=== PATIENT | female | born 2005 | race Caucasian/White ===

== ENCOUNTER 2024-12-14 11:09 | Outpatient (AMB) | payer OTHER, SELFPAY ==
--- NOTE | 2024-12-14 11:15 | A.OFFVIS_ITS ---
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 States she had discomfort in her back, pain with prolong laying on her left side. States this is all new to her and thought her discomfort was due to bad pasture. MRI done in [place] while in training. She doesn't have a copy of results. Hx of pelvic fracture in January 2024. Referred by Elena Perez PCP office/ [facility]. Allergies No Known Allergies Allergy (Verified 12/14/24 11:25) Medication List - Last Reconciled 12/14/24 by Areli Berger MD No Known Home Meds HPI Comments Details: Pelvic fracture in January 2024. Had hiccups with recovery. Repeated pelvic fracture, doctor said there was a curvature 22-24 degrees, and then MRI ordered. MRI done April 2024. Told to have scoliosis and hairline fracture on the right. None of these are available for my review. Discomfort on lower back. Does not radiate to legs. Denies numbness. Denies weakness. No bladder/bowel changes. Separate right groin pain from the pelvic fracture. adjusts her pubic symphysis. Unable to re-enlist without resolution for scoliosis and pelvic fracture. 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 Patient was appropriately conversant and oriented. Good historian. MSK: Inspection reveals appropriate head and neck positioning. No pain with palpation over the neck musculature. Cervical ROM was full. Spurling's sign negative. Bilateral shoulder, elbow and wrist ROM WNL. No ligamentous laxity or crepitance. No increased effusion. No specific abnormalities or instability found on inspection and palpation of the spine and extremities. Lumbar ROM was full. No spinal curvature seen. SI joints appeared symmetric. Negative TALIA test bilateral. Negative SLR bilateral. Strength is 5/5 in all muscle groups tested. No increased tone noted. Neurological: Neurologic examination of the upper and lower extremities was nonfocal with intact sensation, muscle stretch reflexes and without focal motor deficits . Mercedes?s negative bilaterally. Babinski was down going bilaterally. Clonus was negative. Gait is non-antalgic without loss of balance. Results Reviewed Results Reviewed: I independently reviewed the results of the following: [ ] I reviewed records from the following: [ ] Assessment & Plan Assessment & Plan (1) History of pelvic fracture: Code(s): Z87.81 - Personal history of (healed) traumatic fracture Category: Medical (2) History of scoliosis: Code(s): Z87.39 - Personal history of other diseases of the musculoskeletal system and connective tissue Category: Medical Plan Recovering from pelvic fracture. Told to have scoliosis. No red flags on exam today. Patient needs some sort of clearance before she can really list. I would need past records, including lumbar and pelvic x-rays and MRIs done in [place]. We will see if I need to repeat any, although no clinical indication at this time to need further imaging. Assessment and plan discussed with patient, and patient was agreeable. All questions were answered thoroughly. Follow up after all past records obtained. Areli Berger MD, SHEREE Board Certified, [place] [employer] Physical [employer] and Rehabilitation (ABPMR) Board Certified, [place] Board of Electrodiagnostic Medicine (ABEM) Coding Level of Care Code New Pt Level 3 (50031) Diagnoses History of pelvic fracture Z87.81 History of scoliosis Z87.39
[2024-12-14 11:27] VITALS: BMI 22.6
--- OUTSIDE RECORDS SUMMARY | 2024-12-14 13:43 | XMS_ITS | Clinical Summary ---
Author Organization [facility] [address] [facility] l[address] Address [address] [place] [address] Phone Care Team Providers Care Engineering Group Manager Name Role Phone Blanca Mccartney MD Primary Care Provider Allergies No known active allergies Medications prednisoLONE acetate (PRED FORTE) 1 % ophthalmic suspension instill 1 drop into both eyes four times daily. 4 Active fluticasone propionate (FLONASE) 50 mcg/actuation nasal spray Administer 2 sprays into affected nostril(s). 4 Active doxycycline (VIBRAMYCIN) 100 mg capsule Take 1 capsule (100 mg total) by mouth 2 (two) times a day. 7 days 4 Active Active Problems Problem Noted Date Diagnosed Date History of pelvic fracture Scoliosis Encounters Date Type Department Care Team Description 10/16/2024 Telephone Obstetrics and Gynecology - [facility] [address] [place] [phone] Elizabeth Xie MA 10/13/2024 Telephone Obstetrics and Gynecology - [facility] [address] [place] [phone] Karoline Mccullough CNM Results 10/06/2024 1:48 PM EST - 10/06/2024 11:59 PM EST Hospital Encounter [facility] Ultrasound [address] [place] [address] Pain due to intrauterine contraceptive device (IUD), initial encounter ([facility] V24) Discharge Disposition: Home or Self Care 09/27/2024 2:45 PM EST Office Visit Obstetrics and Gynecology - [address] [phone] Karoline Mccullough CNM IUD check up (Primary Dx); Pain due to intrauterine contraceptive device (IUD), initial encounter ([facility] V24); History of UTI; History of termination of from Last 3 Months Surgical History Surgery Date Site/Laterality Comments NO PAST SURGERIES WISDOM TOOTH EXTRACTION Medical History Medical History Date Comments Scoliosis History of pelvic fracture Family History Medical History Relation Name Comments Alcohol abuse Father Drug abuse Mother Relation Name Status Comments Father Mother Social History Tobacco Use Types Packs/Day Years Used Date Smoking Tobacco: Never Smokeless Tobacco: Never Tobacco Cessation:Counseling Given: Not Answered Alcohol Use Standard Drinks/Week Comments Yes 0 (1 standard drink = 0.6 oz pur e alcohol) rarely Access to Healthcare Answer Date Record ed Within the last 3 months, ho w many times did you visit the emergency department for your medical care? 0 08/13/2024 Comments No Sex and Gender Information Value Date Recorded Sex Assigned at Female 09/27/2024 3:12 PM EST Legal Sex Female 8:18 PM EST Gender Identity Female 09/27/2024 3:12 PM EST Sexual Orientation Straight 09/27/2024 3: 12 PM EST Obstetrics History Last Filed Vital Signs Vital Sign Reading Time Taken Comments Blood Pressure 119/76 09/27/2024 2:46 PM EST Pulse 97 09/27/2024 2:46 PM EST Temperature 36.5 ??C (97.7 ??F) 08/14/2024 11:[address] Respiratory Rate - - Oxygen Saturation - - Inhaled Oxygen Concentration - - Weight 62.1 kg (137 lb) 09/27/2024 2:46 PM EST Height 162.6 cm (5' 4 ) 08/14/2024 11:37 AM EST Body Mass Index 23.52 08/14/2024 11:37 AM EST Plan of Treatment Health Maintenance Due Date Last Done Comments Varicella Vaccines (1 of 2 - 13+ 2-dose series) 02/27/2017 HPV Vaccines (1 - 3-dose series) 02/27/2019 Meningococcal B Vaccine (1 o f 2 - Standard) 2020 Hepatitis B Vaccines (1 of 3 - 19+ 3-dose series) 02/27/2023 IPV Vaccines (2 of 3 - Adult catch-up series) 02/14/2024 01/17/2024 COVID-19 Vaccine (1 - 2023-2 5 season) 2024 Influenza Vaccine (Season Ended) 2025 01/17/2024 Social Influencers of Health Screening 08/13/2025 08/13/2024 Annual Well Child Visit (3-2 1 years old) 08/14/2025 08/14/2024 Gonorrhea/Chlamydia Screening 08/16/2025, 11/22/2023 Depression Screening 09/26/2025 09/26/2024 Cholesterol Screening (Lipid Panel) 08/14/2029 08/14/2024 DTaP,Tdap,and Td Vaccines (2 - Td or Tdap) 01/16/2034 01/17/2024 Meningococcal ACWY Vaccine Aged Out 01/17/2024 N o longer eligible based on patient's age to complete this topic HIV Screening Completed 08/14/2024 Hepatitis C Screening Completed 08/14/2024 HIB Vaccines Aged Out No longer eligi ble based on patient's age to complete this topic Hepatitis A Vaccines Aged Out No long er eligible based on patient's age to complete this topic MMR Vaccines Aged Out No longer eligi ble based on patient's age to complete this topic Pneumococcal Vaccine: Pediatrics (0 to 5 Years) and At-Risk Patients (6 to 64 Years) Aged Out No longer eligible b ased on patient's age to complete this topic RSV Immunization Patients Under 20 months Aged Out No longer eligible b ased on patient's age to complete this topic Procedures Procedure Name Priority Date/Time Associated Diagnosis Comments US PELVIS NON OB COMPLETE W TRANSVAGINAL Routine 10/06/2024 2:25 PM EST Pain due to intrauterine contraceptive device (IUD), initial encounter ([facility] V24) CULTURE URINE Routine 09/27/2024 2:58 PM EST History of UTI CHLAMYDIA TRACHOMATIS AND NEISSERIA GONORRHOEAE PCR Routine 08/16/2024 2:13 PM EST Venereal disease screening HEPATITIS C ANTIBODY Routine 08/14/2024 12:40 PM EST Screen for STD (sexually transmitted disease) HIV 1, 2 ANTIBODY, P24 ANTIGEN WITH REFLEX TO DIFFERENTIATION Routine 08/14/2024 12:40 PM EST Screen for STD (sexually transmitted disease) LIPID PANEL WITH REFLEX TO DIRECT LDL Routine 08/14/2024 12:40 PM EST Routine general medical examination at a health care facility from Last 3 Months or Most Recently Relevant to Health Maintenance Results * US Pelvis Non OB Complete w Transvaginal (10/06/2024 2:25 PM EST) Anatomical Region Laterality Modality Body, Pelvis Ultrasound 10/13/2024 1:09 PM EST Addenda Addendum by Joseph Sainz MD on 10/13/2024 6:17 PM EST IUD measures 1.4 cm from the fundal contour. -------- ADDENDUM -------- Dictated By: Joseph Sainz Dictated Date: 10/13/2024 18:13 ET Assigned Physician: Joseph Sainz Reviewed and Electronically Signed By: Joseph Sainz Signed Date: 10/13/2024 18:17 ET Workstation ID: [id number] Transcribed By: Self Edit Transcribed Date: 10/13/2024 18:13 ET Impressions 10/13/2024 1:[address]UD in place. -------- FINAL REPORT -------- Dictated By: Joseph Sainz Dictated Date: 10/13/2024 13:09 ET Assigned Physician: Joseph Sainz Reviewed and Electronically Signed By: Joseph Sainz Signed Date: 10/13/2024 13:11 ET Workstation ID: [id number] Transcribed By: Self Edit Transcribed Date: 10/13/2024 13:09 ET Narrative 10/13/2024 1:11 PM EST ULTRASOUND PELVIS INDICATIONS: ??check placement s/p insertion for another practice PROCEDURE: ??Real-time rico-scale and color Doppler ultrasound imaging of the pelvis were performed with image documentation. Transabdominal and transvaginal imaging of the pelvis was performed. COMPARISON: ??None. FINDINGS: UTERUS: ?? Measures 7.1 x 3 x 4.[address] ??Anteverted ??Normal echotexture. ??No focal lesions. ?? No nabothian cysts identified. ENDOMETRIUM: ?? Thickness = ??3 ??mm. Unremarkable echotexture. No focal abnormality. RIGHT OVARY: ?? Measures 4.4 x 3 x 2.4 ??cm. ?? There is a cyst measuring 2.5 cm ??Normal color- flow. LEFT OVARY: ?? Measures 3.1 x 1.9 x 2.9 ??cm. ?No focal adnexal abnormality. ??Normal color-flow. Procedure Note Joseph Sainz MD - 10/13/2024 ULTRASOUND PELVIS INDICATIONS: check placement s/p insertion for another practice PROCEDURE: Real-time rico-scale and color Doppler ultrasound imaging ofthe pelvis were performed with image documentation. Transabdominal andtransvaginal imaging of the pelvis was performed. COMPARISON: None. FINDINGS: UTERUS: Measures 7.1 x 3 x 4.[address] Anteverted Normal echotexture.No focal lesions. No nabothian cysts identified. ENDOMETRIUM: Thickness = 3 mm. Unremarkable echotexture. No focal abnormality. RIGHT OVARY: Measures 4.4 x 3 x 2.4 cm. There is a cyst measuring 2.5 cm Normalcolor-flow. LEFT OVARY: Measures 3.1 x 1.9 x 2.9 cm. No focal adnexal abnormality. Normalcolor-flow. IMPRESSION: IUD in place. -------- FINAL REPORT -------- Dictated By: Joseph Sainz Dictated Date: 10/13/2024 13:09 ET Assigned Physician: Joseph Sainz Reviewed and Electronically Signed By: Joseph Sainz Signed Date: 10/13/2024 13:11 ET Workstation ID: [id number] Transcribed By: Self Edit Transcribed Date: 10/13/2024 13:09 ET us Karoline Mccullough CNM IMG US PROCEDURES Edited Resu lt - Final * Culture urine (09/27/2024 2:58 PM EST) Culture, Urine 10,000-49,000 CFU/mL Mixed urogenital penny, no uropathogens present. Suggest repeat specimen if clinically indicated. 09/28/2024 11:46 AM EST [facility] Urine Urine specimen obtained by clean catch procedure / Unknown Non-blood Collection / Unknown 09/27/2024 2:58 PM EST 09/27/2024 2:58 PM EST [facility] LAB MICROBIOLOGY - GENERAL OR DERABLES Final Result Performing Organization Address City/[facility]/ZIP Co de Phone Number [facility] [address] [place] [address], [place] [phone] * Chlamydia trachomatis and Neisseria gonorrhoeae molecular study (08/16/2024 2:13 PM EST) [facility] Neisseria gonorrhoeae PCR Negative Negative LAB MOLECULAR DIAGNOSTICS METHOD 08/17/2024 9:20 AM [facility] Chlamydia trachomatis PCR Negative Negative LAB MOLECULAR DIAGNOSTICS METHOD 08/17/2024 9:20 AM [facility] Swab Vaginal structure / Unknown Non-blood Collection / Unknown 08/16/2024 2:13 PM EST 08/16/2024 2:13 PM EST [facility] LAB MICROBIOLOGY - GENERAL OR DERABLES Final Result [facility] [address] [place] [address], [place] [phone] * Hepatitis C antibody (08/14/2024 12:40 PM EST) [facility] Hepatitis C Antibody Negative Negative LAB CHEMISTRY METHOD 08/14/2024 7:52 PM EST [facility] Blood Venous blood specimen / Unknown Venipuncture / Unknown 08/14/2024 12:40 PM EST 08/14/2024 12:40 PM EST Elena [facility]HPAN[facility] LAB BLOOD ORDERABLES Final Result [facility] [address] [place] [address], [place] [phone] * HIV 1,2 antibody, p24 antigen with reflex to differentiation (08/14/2024 12:40 PM EST) Pathologist [facility] HIV Combo AB/AG Negative Negative LAB CHEMISTRY METHOD 08/14/2024 7:53 PM EST [facility] Blood Venous blood specimen / Unknown Venipuncture / Unknown 08/14/2024 12:40 PM EST 08/14/2024 12:40 PM EST Narrative [facility] - 08/14/2024 7:53 PM EST This assay is a 4th generation assay allowing for earlier detection of HIV infection by detecting the presence of the HIV-1 p24 antigen as well as the traditional antibodies to HIV type 1 (including group O) and type 2. ??Use of a 4th generation assay is the current CDC recommendation for HIV screening. Elena [facility] LAB BLOOD ORDERABLES Final Result Performing Organization Address City/[facility]/ZIP Co de Phone Number [facility] [address] [place] [address], [place] [phone] * Lipid panel with reflex to direct LDL (08/14/2024 12:40 PM EST) Cholesterol 147 0 - 200 mg/dL LAB CHEMISTRY METHOD 08/14/2024 7:09 PM EST [facility] Triglycerides 107 0 - 150 mg/dL LAB CHEMISTRY METHOD 08/14/2024 7:09 PM EST [facility] HDL 55 >=40 mg/dL LAB CHEMISTRY METHOD 08/14/2024 7:09 PM EST [facility] LDL Calculated 71 0 - 100 mg/dL LAB CHEMISTRY METHOD 08/14/2024 7:09 PM EST [facility] VLDL Cholesterol Miguel A 21.4 mg/dL LAB CHEMISTRY METHOD 08/14/2024 7:09 PM EST [facility] Non HDL Chol. (LDL+VLDL) 92 <145 mg/dL LAB CHEMISTRY METHOD 08/14/2024 7:09 PM EST [facility] Chol/HDL Ratio 2.7 0.0 - 4.4 LAB CHEMISTRY METHOD 08/14/2024 7:09 PM EST [facility] Blood Venous blood specimen / Unknown Venipuncture / Unknown 08/14/2024 12:40 PM EST 08/14/2024 12:40 PM EST us Elena [facility]HPAN[facility] LAB BLOOD ORDERABLES Final Result [facility] [address] [place] [address], from Last 3 Months or Most Recently Relevant to Health Maintenance Insurance MEDICAID - [place] Care Teams Engineering Group Manager Relationship Specialty Start Date End Date Blanca Mccartney MD [address] [place] [phone] PCP - General 09/08/23
--- OUTSIDE RECORDS SUMMARY | 2024-12-14 13:43 | XMS_ITS ---
Author Name [facility] Organization Unknown Care Team Organization Name Specialty Phone Email Start Date End Da [facility] ([facility] 12/28/2023 [facility] Primary Care 05/04/202312/2022 [facility] Primary Care 05/04/202312/[address] [facility] 07/22/2022 [facility] 09/08/2021 09/08/2021
== END 2024-12-14 12:02 | disposition home or self-care (01) ==
LOC: HO.HOS 11:09
PROVIDERS: PCP Family Medicine; Visit Provider Physical Medicine & Rehabilitation
DX: Z87.81 Personal history of (healed) traumatic fracture (principal); Z87.39 Personal history of other diseases of the musculoskeletal system and connective tissue
CPT/HCPCS: 99203

== ENCOUNTER → 2024-12-14 11:09 | Outpatient (BNVA) | payer OTHER, SELFPAY | PROVIDERS: PCP Family Medicine; Visit Provider Physical Medicine & Rehabilitation | DX: R10.2 Pelvic and perineal pain (principal); M54.9 Dorsalgia, unspecified; Z87.39 Personal history of other diseases of the musculoskeletal system and connective tissue; Z87.81 Personal history of (healed) traumatic fracture | CPT/HCPCS: 99202 ==

== ENCOUNTER 2025-01-10 14:46 | Outpatient (REF) | payer OTHER, SELFPAY ==
--- OUTSIDE RECORDS SUMMARY | 2025-01-10 14:49 | XMS_ITS | Clinical Summary ---
Author Organization [facility] [address] [facility] l[address] Address [address] [place] [address] Phone Care Team Providers Care Building Materials Sales Attendant Name Role Phone Blanca Mccartney MD Primary [...] Description 10/16/2024 Telephone Obstetrics and Gynecology - [place] [address] [place] [phone] Elizabeth Xie [place] 10/13/2024 Telephone Obstetrics and Gynecology - [place] [address] [place] [phone] Karoline Mccullough CNM Results from Last 3 Months Surgical History Surgery [...] Adult catch-up series) 02/14/2024 01/17/2024 COVID-19 Vaccine ( - 2023-2 5 season) 2024 Influenza Vaccine [...] Procedure Name Priority Date/Time Associated Diagnosis Comments CHLAMYDIA TRACHOMATIS AND NEISSERIA GONORRHOEAE PCR Routine [...] Recently Relevant to Health Maintenance Results * Chlamydia trachomatis and Neisseria gonorrhoeae molecular study (08/16/2024 2:13 PM EST) Neisseria gonorrhoeae PCR Negative Negative LAB MOLECULAR DIAGNOSTICS METHOD 08/17/2024 9:20 AM EST [facility] Chlamydia trachomatis PCR Negative Negative LAB MOLECULAR DIAGNOSTICS METHOD 08/17/2024 9:20 AM EST [facility] Swab Vaginal structure / Unknown Non-blood Collection / Unknown 08/16/2024 2:13 PM EST 08/16/2024 2:13 PM EST Karoline Mccullough CNM LAB MICROBIOLOGY - GENERAL OR DERABLES Final Result Performing Organization Address [facility]/ZIP Co de Phone Number [facility] [address] [place] [address], [place] [phone] * Hepatitis C antibody (08/14/2024 12:40 PM EST) [facility] Hepatitis C Antibody Negative Negative LAB CHEMISTRY METHOD 08/14/2024 7:52 PM EST [facility] Blood Venous blood specimen / Unknown Venipuncture / Unknown 08/14/2024 12:40 PM EST 08/14/2024 12:40 PM EST Elena DESHPANDE LAB BLOOD ORDERABLES Final Result Performing Organization Address [facility] de Phone Number [facility] [address] [place] [address], [place] [phone] * HIV 1,2 antibody, p24 antigen with reflex to differentiation (08/14/2024 12:40 PM EST) [facility] HIV Combo AB/AG Negative Negative LAB CHEMISTRY METHOD 08/14/2024 7:53 PM EST [facility] Blood Venous blood specimen / Unknown Venipuncture / Unknown 08/14/2024 12:40 PM EST 08/14/2024 12:40 PM EST Narrative [facility] - 08/14/2024 7:53 PM EST This [...] Elena [facility]HPANDE LAB BLOOD ORDERABLES Final Result [facility] [address] [place] [address], [place] [phone] * Lipid panel with reflex to direct LDL (08/14/2024 12:40 PM EST) Cholesterol 147 0 - 200 mg/dL LAB CHEMISTRY METHOD 08/14/2024 7:09 PM EST [facility] Triglycerides 107 0 - 150 mg/dL LAB CHEMISTRY METHOD 08/14/2024 7:09 PM EST [facility] HDL 55 >=40 mg/dL LAB CHEMISTRY METHOD 08/14/2024 7:09 PM EST [facility] LDL Calculated 71 0 - 100 mg/dL LAB CHEMISTRY METHOD 08/14/2024 7:09 PM EST [facility] VLDL Cholesterol Miguel A 21.4 mg/dL LAB CHEMISTRY METHOD 08/14/2024 7:09 PM EST [facility] Non HDL Chol. (LDL+VLDL) 92 <145 mg/dL LAB CHEMISTRY METHOD 08/14/2024 7:09 PM EST [facility] Chol/HDL Ratio 2.7 0.0 - 4.4 LAB CHEMISTRY METHOD 08/14/2024 7:09 PM EST [facility] Blood Venous blood specimen / Unknown Venipuncture / Unknown 08/14/2024 12:40 PM EST 08/14/2024 12:40 PM EST Elena [facility]HPANDE LAB BLOOD ORDERABLES Final Result [facility] [address] [place] [address], [place] [phone] from Last 3 Months or Most Recently Relevant to Health Maintenance Insurance [place] - [place] Care Teams Building Materials Sales Attendant Relationship Specialty Start Date End Date Blanca Mccartney MD [address] [place] [phone] PCP - General 09/08/23
== END 2025-01-10 14:47 | disposition home or self-care (01) ==
LOC: CF 14:46
DX: Z13.89 Encounter for screening for other disorder (principal)

== ENCOUNTER 2025-02-22 10:04 | Outpatient (REF) | payer OTHER, SELFPAY ==
--- NOTE | ~2025-02-22 | XR_ITS ---
EXAMINATION: XR PELVIS CLINICAL INFORMATION: Z87.81 - Personal history of (healed) traumatic fracture COMPARISON: May 16, 2024 TECHNIQUE: AP view of the pelvis. FINDINGS: IUD projects left of midline. There is remodeling with mature callus involving a fracture of the right inferior pubic ramus. No other bony abnormality is seen. XR/XR pelvis min 3V IMPRESSION: Healed right inferior pubic ramus fracture. Electronically signed by: Suresh Hopkins MD 02/22/2025 10:55 AM EDT
== END 2025-02-22 10:05 | disposition home or self-care (01) ==
LOC: HO.HOSX 10:04
PROVIDERS: PCP Family Medicine; Visit Provider Physical Medicine & Rehabilitation
DX: M62.89 Other specified disorders of muscle (principal); Z87.81 Personal history of (healed) traumatic fracture; Z87.39 Personal history of other diseases of the musculoskeletal system and connective tissue
CPT/HCPCS: 72190; 99212

== ENCOUNTER 2025-02-22 10:04 | Outpatient (AMB) | payer OTHER, SELFPAY ==
[2025-02-22 10:07] VITALS: BMI 22.6
--- NOTE | 2025-02-22 10:07 | MHC.OFFVIS ---
Vital Signs 02/22/25 10:07 Height 5 ft 5 in Weight 136 lb BMI 22.6 Intake Visit Reasons: Follow Up-Spine/pelvic pain; scoliosis Intake Note: Patient is a 19 year old female who presents today for Follow Up- Right side Spine/pelvic pain; scoliosis. Patient states that her right side is feeling very sore. She notes that at work her pain is aggravated due to prolong walking/standing. Patient reports that no numbness or tingling at this time. Patient did note that she wanted to discuss possible physical therapy for her right hip/pelvic. Allergies No Known Allergies Allergy (Verified 02/22/25 10:13) Medication List - Last Reconciled 02/22/25 by Areli Berger MD No Known Home Meds HPI Comments Details: Pelvic fracture in January 2024. Had hiccups with recovery. Repeated pelvic fracture, doctor said there was a curvature 22-24 degrees, and then MRI ordered. MRI done April 2024. Told to have scoliosis and hairline fracture on the right. None of these are available for my review. Discomfort on lower back. Does not radiate to legs. Denies numbness. Denies weakness. No bladder/bowel changes. Separate right groin pain from the pelvic fracture. adjusts her pubic symphysis. Unable to re-enlist without resolution for scoliosis and pelvic fracture. Treatment done so far: physical therapy - end of February 2024 No change in symptoms. A little sore in the pelvic region where she had her injury, right groin. 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 No change bladder/bowel changes. No dyspareunia. Denies abdominal pain. Denies back pain. She admits that the sensation/pain has gradually eventually improved and changed since the actual onset of fracture. She does not plan to re-enlist. She brought past records: Xray spine 04/2024 - scoliosis thoracolumbar 23 degrees convex right apex T8-9, 24 degrees convex left apex L2-3. Early callus formation along the inferior ischiopubic ramus on the right side, consistent with osseous response to subacute fracture. 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 Patient was appropriately conversant and oriented. Good historian. MSK: Inspection reveals appropriate head and neck positioning. No specific abnormalities or instability found on inspection and palpation of the spine and extremities. Lumbar ROM was full. No spinal curvature seen. SI joints appeared symmetric. Negative TALIA test bilateral. Negative SLR bilateral. Negative hip impingement test. Strength is 5/5 in all muscle groups tested. No increased tone noted. Neurological: Neurologic examination of the upper and lower extremities was nonfocal with intact sensation, muscle stretch reflexes and without focal motor deficits . Mercedes?s negative bilaterally. Babinski was down going bilaterally. Clonus was negative. Gait is non-antalgic without loss of balance. Results Reviewed Results Reviewed: She brought in medical records as above. To be scanned. Assessment & Plan Assessment & Plan (1) Pelvic floor dysfunction: Code(s): M62.89 - Other specified disorders of muscle Category: Medical (2) History of pelvic fracture: Code(s): Z87.81 - Personal history of (healed) traumatic fracture Category: Medical (3) History of scoliosis: Code(s): Z87.39 - Personal history of other diseases of the musculoskeletal system and connective tissue Category: Medical Plan Suspect she has developed pelvic floor dysfunction from previous fracture. Past x-rays have shown healing of the fracture. We will do repeat x-rays today to make sure. Referring patient specifically for pelvic floor therapy. Assessment and plan discussed with patient, and patient was agreeable. All questions were answered thoroughly. Follow up 2-3 months. Areli Berger MD, SHEREE Board Certified, [place] [employer] and Rehabilitation (ABPMR) Board Certified, [place] [employer] Electrodiagnostic Medicine (ABEM) Orders: Orders PT Evaluation and Treatment Today M62.89 - Other specified disorders of muscle, Z87.39 - Personal history of other diseases of the musculoskeletal system and connective tissue, Z87.81 - Personal history of (healed) traumatic fracture XR pelvis min 3V Today Z87.39 - Personal history of other diseases of the musculoskeletal system and connective tissue, Z87.81 - Personal history of (healed) traumatic fracture Coding Level of Care Code Est Pt Level 4 (52367) Diagnoses Pelvic floor dysfunction M62.89 History of pelvic fracture Z87.81 History of scoliosis Z87.39
--- OUTSIDE RECORDS SUMMARY | 2025-02-22 11:33 | XMS_ITS | Clinical Summary ---
Author Organization [facility] [address] [facility] lding Address [address] [place] [address] Phone Care Team Providers Care Wallpaper Inspector And Shipper Name Role Phone Blanca Mccartney MD Primary [...] Diagnosed Date History of pelvic fracture Scoliosis Surgical History Surgery Date Site/Laterality Comments NO [...] 97 09/27/2024 2:46 PM EST Temperature 36.5 C (97.7 F) 08/14/2024 11:37 AM EST Respiratory Rate - - Oxygen Saturation - [...] MOLECULAR DIAGNOSTICS METHOD 08/17/2024 9:20 AM EST [facility] Chlamydia trachomatis PCR Negative Negative LAB MOLECULAR DIAGNOSTICS METHOD 08/17/2024 9:20 AM EST [facility] Swab Vaginal structure / Unknown Non-blood Collection / Unknown 08/16/2024 2:13 PM EST 08/16/2024 2:13 PM EST Karoline Mccullough CNM LAB MICROBIOLOGY - GENERAL OR DERABLES Final Result [facility] [address] [place] [address], * Hepatitis C antibody (08/14/2024 12:40 PM EST) [facility] Hepatitis C Antibody Negative Negative LAB CHEMISTRY METHOD 08/14/2024 7:52 PM EST [facility] Blood Venous blood specimen / Unknown Venipuncture / Unknown 08/14/2024 12:40 PM EST 08/14/2024 12:40 PM EST Elena DESHPANDE LAB BLOOD ORDERABLES Final Result Performing Organization Address [facility]/ZIP Co de Phone Number [facility] [address] [place] [address], [place] [phone] * HIV 1,2 antibody, p24 antigen with reflex to differentiation (08/14/2024 12:40 PM EST) [facility] HIV Combo AB/AG Negative Negative LAB CHEMISTRY METHOD 08/14/2024 7:53 PM EST [facility] Blood Venous blood specimen / Unknown Venipuncture / Unknown 08/14/2024 12:40 PM EST 08/14/2024 12:40 PM EST Narrative [facility] - 08/14/2024 7:53 PM EST This assay is a 4th generation assay allowing for earlier detection of HIV infection by detecting the presence of the HIV-1 p24 antigen as well as the traditional antibodies to HIV type 1 (including group O) and type 2. Use of a 4th generation assay is the current CDC recommendation for HIV screening. Elena DESHPANDE LAB BLOOD ORDERABLES Final Result Performing Organization Address City/[facility]/ZIP Co de Phone Number [facility] [address] [place] [address], [place] [phone] * Lipid panel with reflex to direct LDL (08/14/2024 12:40 PM EST) [facility] Cholesterol 147 0 - 200 mg/dL LAB CHEMISTRY METHOD 08/14/2024 7:09 PM EST [facility] Triglycerides 107 0 - 150 mg/dL LAB CHEMISTRY METHOD 08/14/2024 7:09 PM EST [facility] HDL 55 >=40 mg/dL LAB CHEMISTRY METHOD 08/14/2024 7:09 PM [facility] LDL Calculated 71 0 - 100 mg/dL LAB CHEMISTRY METHOD 08/14/2024 7:09 PM [facility] VLDL Cholesterol Miguel A 21.4 mg/dL LAB CHEMISTRY METHOD 08/14/2024 7:09 PM [facility] Non HDL Chol. (LDL+VLDL) 92 <145 mg/dL LAB CHEMISTRY METHOD 08/14/2024 7:09 PM [facility] Chol/HDL Ratio 2.7 0.0 - 4.4 LAB CHEMISTRY METHOD 08/14/2024 7:09 PM [facility] Blood Venous blood specimen / Unknown Venipuncture / Unknown 08/14/2024 12:40 PM EST 08/14/2024 12:40 PM EST us Elena DESHPANDE LAB BLOOD ORDERABLES Final Result [facility]) [facility] [address] [place] [address], [place] [phone] from Last 3 Months or Most Recently Relevant to Health Maintenance Insurance [facility] MEDICAID - [place] Care Teams Wallpaper Inspector And Shipper Relationship Specialty Start Date End Date Blanca Mccartney MD [address] [place] [id number] PCP - General 09/08/23
== END 2025-02-22 10:37 | disposition home or self-care (01) ==
LOC: HO.HOS 10:04
PROVIDERS: PCP Family Medicine; Visit Provider Physical Medicine & Rehabilitation
DX: M62.89 Other specified disorders of muscle (principal); Z87.81 Personal history of (healed) traumatic fracture; Z87.39 Personal history of other diseases of the musculoskeletal system and connective tissue
CPT/HCPCS: 99213

== ENCOUNTER → 2025-02-22 10:33 | Outpatient (BNV) | payer OTHER, SELFPAY | PROVIDERS: PCP Family Medicine; Visit Provider Radiology Diagnostic Radiology | DX: Z87.81 Personal history of (healed) traumatic fracture (principal) | CPT/HCPCS: 72190 ==

== ENCOUNTER 2025-04-26 10:50 | Outpatient (AMB) | payer OTHER, SELFPAY ==
--- NOTE | 2025-04-26 10:57 | MHC.OFFVIS ---
Vital Signs 04/26/25 11:01 Height 5 ft 5 in Weight 130 lb BMI 21.6 Intake Visit Reasons: OV-Spine/pelvic pain; scoliosis f/u Intake Note: Karlene is a 20 year old female who presents today as a follow up for her Spine and pelvic pain; scoliosis. At last visit 02/22/25 we discussed sending her to a pelvic floor therapist. At today's visit she states she has been going to her appointments twice a week for the past month. Patient states that she is starting to see improvements and starting to have sensations come back to her spine and pelvic area. Allergies No Known Allergies Allergy (Verified 04/26/25 11:01) Medication List - Last Reconciled 04/26/25 by Areli Berger MD No Known Home Meds HPI Comments Details: Pelvic fracture in January 2024. Had hiccups with recovery. Repeated pelvic fracture, doctor said there was a curvature 22-24 degrees, and then MRI ordered. MRI done April 2024. Told to have scoliosis and hairline fracture on the right. She brought past records: Xray spine 04/2024 - scoliosis thoracolumbar 23 degrees convex right apex T8-9, 24 degrees convex left apex L2-3. Early callus formation along the inferior ischiopubic ramus on the right side, consistent with osseous response to subacute fracture. Right hip xray 04/2024 - healing fracture right IPR and healing stress injury along the medial cortext of the upper right femur MRI pelvis 02/2024 - right inferior ischiopubis ramus nondisplaced stress fracture Repeated pelvic fracture on last visit, fracture healed. Send for physical therapy, focus on core muscles and try pelvic floor therapy. She has been going to therapy with good results. Reviewed notes from PT. I do not think they ever did internal pelvic floor therapy. Patient denies any internal pelvic pain. Denies any bladder or bowel changes. She describes symptoms now as more discomfort and soreness, particularly after therapies, but not long-lasting. 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 Patient was appropriately conversant and oriented. Good historian. MSK: Inspection reveals appropriate head and neck positioning. No specific abnormalities or instability found on inspection and palpation of the spine and extremities. Lumbar ROM was full. No spinal curvature seen. SI joints appeared symmetric. Neurological: Neurologic examination of the upper and lower extremities was nonfocal with intact sensation, muscle stretch reflexes and without focal motor deficits . Babinski was down going bilaterally. Clonus was negative. Gait is non-antalgic without loss of balance. Results Reviewed Results Reviewed: EXAMINATION: XR PELVIS CLINICAL INFORMATION: Z87.81 - Personal history of (healed) traumatic fracture COMPARISON: May 16, 2024 TECHNIQUE: AP view of the pelvis. FINDINGS: IUD projects left of midline. There is remodeling with mature callus involving a fracture of the right inferior pubic ramus. No other bony abnormality is seen. XR/XR pelvis min 3V IMPRESSION: Healed right inferior pubic ramus fracture. Electronically signed by: Suresh Hopkins MD 02/22/2025 10:55 AM EDT RP Assessment & Plan Assessment & Plan (1) Pelvic floor dysfunction: Code(s): M62.89 - Other specified disorders of muscle Category: Medical (2) History of pelvic fracture: Code(s): Z87.81 - Personal history of (healed) traumatic fracture Category: Medical (3) History of scoliosis: Code(s): Z87.39 - Personal history of other diseases of the musculoskeletal system and connective tissue Category: Medical Plan Suspected that she developed pelvic floor dysfunction from previous fracture. Done well so far with pelvic floor, although most of the work is on external core and lumbar muscles, no internal therapy. Finish course of physical therapy and graduate to home exercises. No further intervention needed but reiterated need for continued exercises at home. Assessment and plan discussed with patient, and patient was agreeable. All questions were answered thoroughly. Areli Berger MD, SHEREE Board Certified, [place] Board [employer] Physical Medicine and Rehabilitation (ABPMR) Board Certified, [place] Board [employer] Electrodiagnostic Medicine (ABEM) Coding Level of Care Code Est Pt Level 3 (13726) Diagnoses Pelvic floor dysfunction M62.89 History of pelvic fracture Z87.81 History of scoliosis Z87.39
[2025-04-26 11:01] VITALS: BMI 21.6
--- OUTSIDE RECORDS SUMMARY | 2025-04-26 12:19 | XMS_ITS ---
Author Name [facility] Organization Unknown Care Team Organization Name Specialty Phone Email Start Date End [facility] ([facility]) 12/28/2023 [facility] Primary Care 05/04/202312/2023 [facility] Primary Care 05/04/202312/2022 [facility] 07/22/2022 [facility] 09/08/2021 09/08/2021
--- OUTSIDE RECORDS SUMMARY | 2025-04-26 12:19 | XMS_ITS | Clinical Summary ---
Author Organization [facility] 230 [facility] lding Address [address] [place] [address] Phone Care Team Providers Care Internal Controls Specialist Name Role Phone Blanca Mccartney MD Primary [...] Health Maintenance Due Date Last Done Comments HPV Vaccines (1 - 3-dose series) 02/27/2019 Meningococcal B Vaccine (1 o f 2 - Standard) 2020 Hepatitis B Vaccines (1 of 3 - 19+ 3-dose series) 02/27/2023 IPV Vaccines (2 of 3 - Adult catch-up series) 02/14/2024 01/17/2024 COVID-19 Vaccine (1 - 2023-2 5 season) 2024 Cervical Cancer Screening: P ap Smear 02/27/2025 Influenza Vaccine (#1) 2025 01/17/2024 Social Influencers of Health Screening 08/13/2025 08/13/2024 Annual Well Child Visit (3-2 1 years old) 08/14/2025 08/14/2024 Gonorrhea/Chlamydia Screening 08/16/2025, 11/22/2023 Cholesterol Screening (Lipid Panel) 08/14/2029 08/14/2024 DTaP,Tdap,and Td Vaccines (2 - Td or Tdap) 01/16/2034 01/17/2024 Meningococcal ACWY Vaccine Aged Out 01/17/2024 N o longer eligible based on patient's age to complete this topic HIV Screening Completed 08/14/2024 Hepatitis C Screening Completed 08/14/2024 Depression Screening Completed 09/26/2024 HIB Vaccines Aged Out No longer eligi ble based on patient's age to complete this topic Hepatitis A Vaccines Aged Out No long er eligible based on patient's age to complete this topic MMR Vaccines Aged Out No longer eligi ble based on patient's age to complete this topic Pneumococcal Vaccine: Pediatrics (0 to 5 Years) and At-Risk Patients (6 to 49 Years) Aged Out No longer eligible b ased on patient's age to complete this topic RSV Immunization Patients Under 20 months Aged Out No longer eligible b ased on patient's age to complete this topic Varicella Vaccines Aged Out No longer eligible based on patient's age to [...] MOLECULAR DIAGNOSTICS METHOD 08/17/2024 9:20 AM EST [facility] Chlamydia trachomatis PCR Negative Negative LAB MOLECULAR DIAGNOSTICS METHOD 08/17/2024 9:20 AM EST [facility] Swab Vaginal structure / Unknown Non-blood Collection / Unknown 08/16/2024 2:13 PM EST 08/16/2024 2:13 PM EST us Karoline Mccullough CNM LAB MICROBIOLOGY - GENERAL OR DERABLES Final Result [facility] [address] [place] [address], * Hepatitis C antibody (08/14/2024 12:40 PM EST) Hepatitis C Antibody Negative Negative LAB CHEMISTRY METHOD 08/14/2024 7:52 PM EST [facility] Blood Venous blood specimen / Unknown Venipuncture / Unknown 08/14/2024 12:40 PM EST 08/14/2024 12:40 PM EST Elena DESHPANDE LAB BLOOD ORDERABLES Final Result Performing Organization Address [facility]/ZIP Co de Phone Number [facility] [address] [place] [address], * HIV 1,2 antibody, p24 antigen with reflex to differentiation (08/14/2024 12:40 PM EST) [facility] HIV Combo AB/AG Negative Negative LAB CHEMISTRY METHOD 08/14/2024 7:53 PM EST [facility] Blood Venous blood specimen / Unknown Venipuncture / Unknown 08/14/2024 12:40 PM EST 08/14/2024 12:40 PM EST Narrative [facility] - 08/14/2024 7:53 PM EST [...] BLOOD ORDERABLES Final Result Performing Organization Address [facility]/ZIP Co de Phone Number [facility] [address] [place] [address], [place] [phone] * Lipid panel with reflex to direct LDL (08/14/2024 12:40 PM EST) [facility] Cholesterol 147 0 - 200 mg/dL LAB CHEMISTRY METHOD 08/14/2024 7:09 PM EST [facility] Triglycerides 107 0 - 150 mg/dL LAB CHEMISTRY METHOD 08/14/2024 7:09 PM [facility] HDL 55 >=40 mg/dL LAB CHEMISTRY METHOD 08/14/2024 7:09 PM [facility] LDL Calculated 71 0 - 100 mg/dL LAB CHEMISTRY METHOD 08/14/2024 7:09 PM [facility] VLDL Cholesterol Miguel A 21.4 mg/dL LAB CHEMISTRY METHOD 08/14/2024 7:09 PM [facility] Non HDL Chol. (LDL+VLDL) 92 <145 mg/dL LAB CHEMISTRY METHOD 08/14/2024 7:09 PM [facility] Chol/HDL Ratio 2.7 0.0 - 4.4 LAB CHEMISTRY METHOD 08/14/2024 7:09 PM [facility] Blood Venous blood specimen / Unknown Venipuncture / Unknown 08/14/2024 12:40 PM EST 08/14/2024 12:40 PM EST Elena DESHPANDE LAB BLOOD ORDERABLES Final Result [facility] [address] [place] [address], from Last 3 Months or Most Recently Relevant to Health Maintenance Insurance [facility] [id number] MEDICAID - [place] Care Teams Internal Controls Specialist Relationship Specialty Start Date End Date Blanca Mccartney MD [address] [place] [id number] PCP - General 09/08/23
== END 2025-04-26 11:40 | disposition home or self-care (01) ==
LOC: HO.HOS 10:51
PROVIDERS: PCP Family Medicine; Visit Provider Physical Medicine & Rehabilitation
DX: M62.89 Other specified disorders of muscle (principal); Z87.81 Personal history of (healed) traumatic fracture; Z87.39 Personal history of other diseases of the musculoskeletal system and connective tissue
CPT/HCPCS: 99213

== ENCOUNTER → 2025-04-26 10:50 | Outpatient (BNVA) | payer OTHER, SELFPAY | PROVIDERS: PCP Family Medicine; Visit Provider Physical Medicine & Rehabilitation | DX: M62.89 Other specified disorders of muscle (principal); Z87.81 Personal history of (healed) traumatic fracture; Z87.39 Personal history of other diseases of the musculoskeletal system and connective tissue | CPT/HCPCS: 99212 ==